=== PATIENT | female | born 1990 | race Caucasian/White ===

== ENCOUNTER 2016-03-22 20:58 | Emergency (ER) | payer MEDICAID ==
[2016-03-22] MEDS ORDERED: ASPIRIN 81 MG CHEW TAB ONE (21:10)
== END 2016-03-23 00:31 | disposition home or self-care (01) ==
LOC: ER 20:58
DX: R00.2 Palpitations (principal)
CPT/HCPCS: 36415; 71010; 80053; 80307; 82550; 83735; 84439; 84443; 84484; 84703; 85025; 85610; 85730; 93005